=== PATIENT | female | born 1965 | race Caucasian/White ===

== ENCOUNTER 2018-10-30 09:03 | Outpatient (CLI) | payer OTHER ==
--- NOTE | 2018-10-30 10:45 | RAD ---
CERVICAL SPINE FRONTAL AND LATERAL IMAGIN10/30/2018 HISTORY: Disability examination. COMPARISON: None. FINDINGS: Anterior diskectomy and fusion hardware is present at C5-C6 and C6-C7. Of note, the fusion plate is not flush with the anterior aspect of the C6 or C7 vertebral bodies, acuity uncertain without compari son imaging. No prevertebral soft tissue swelling. There is prominent multilevel cervical spine fac et and uncovertebral osteophyte formation. There is mild anterolisthesis of C4 on C5, measuring 2 mm . There is disk space narrowing and anterior osteophyte formation at C3-C4 and C4-C5. There are pos terior osteophytes at C5-C6 and C6-C7. IMPRESSION: Postoperative and degenerative changes of the cervical spine, as detailed above. The fusion plate is not flush with the ventral aspect of C6 or C7, chronicity uncertain. POS: [facility]
== END 2018-10-30 09:04 | disposition home or self-care (01) ==
LOC: BICRAD 09:03
PROVIDERS: ATTEND Internal Medicine
DX: Z02.71 Encounter for disability determination (principal); Z98.890 Other specified postprocedural states
CPT/HCPCS: 72040